=== PATIENT | female | born 1985 | race Caucasian/White ===

== ENCOUNTER 2022-09-04 18:35 | Emergency (ER) | payer OTHER, SELFPAY ==
[2022-09-04 18:42] VITALS: BP 119/81; PULSE 65; RESP 20; TEMP 36.8; O2SAT 99
--- NOTE | 2022-09-04 19:07 | ED.FEMALEGU ---
HPI - Female Genitourinary General Chief complaint: Urogenital-Female Stated complaint: Urinary Problem History of Present Illness HPI Narrative: PATIENT PRESENTS WITH LOW BACK PAIN URINARY FREQUENCY AND BURNING FOR THE PAST WEEK. NO FLANK PAIN NO GROSS HEMATURIA NO ABDOMINAL PAIN NO PELVIC PAIN NO CONCERN FOR STDS. Related Data Home Medications Medication Instructions Recorded Confirmed albuterol sulfate 90 mcg/actuation 1 puff inhalation Q4H PRN 06/23/21 09/04/22 aerosol inhaler Shortness Of Breath escitalopram oxalate 10 mg tablet 10 mg PO DAILY 09/04/22 09/04/22 (Lexapro) Allergies Allergy/AdvReac Type Severity Reaction Status Date / Time Benzodiazepines AdvReac Severe addiction Verified 09/04/22 18:56 Review of Systems Review of Systems: CONSTITUTIONAL: DENIES FEVER, CHILLS, OR SWEATS. EYES: DENIES VISUAL CHANGES, REDNESS, OR DISCHARGE. ENT: DENIES RHINORRHEA, CONGESTION, SORE THROAT, OR OTALGIA. CARDIOVASCULAR: DENIES CHEST PAIN, PALPITATIONS, OR EDEMA. RESPIRATORY: DENIES COUGH OR DYSPNEA. GASTROINTESTINAL: DENIES ABDOMINAL PAIN, NAUSEA, VOMITING, OR DIARRHEA. GENITOURINARY: DENIES DYSURIA OR HEMATURIA. SKIN: DENIES RASH OR ITCHING. MUSCULOSKELETAL: DENIES BACK PAIN, JOINT PAIN, OR MYALGIA. NEUROLOGIC: DENIES HEADACHE, NUMBNESS, OR WEAKNESS. PSYCHIATRIC: DENIES ANXIETY OR DEPRESSION. [facility] Past Medical History Medical History ADHD Anxiety Asthma Depression Dysphoric mood rejection sensitive dysphoria Heart murmur PTSD (post-traumatic stress disorder) Vaginal delivery x3 Surgical History Surgical History History of bilateral tubal ligation 02/2015? History of endometrial ablation 08/2015? History of removal of cyst on labia Family History Family History Father Alcoholism Mother Anxiety Depression Grandparent Alcoholism Diabetes mellitus Hypertension Anxiety Depression Heart problem Other Breast cancer runs on mothers side Ovarian cancer runs on mother's side Social History Social History Smoking status: Current every day smoker Tobacco type: cigarettes and e-cigarettes/vaping Alcohol intake: current Alcohol use details: about twice per year Substance use: former Substance use type: marijuana and prescription drug Other substance usage details: rell Comments AT TIME OF SIGNATURE, AGREE WITH NURSING PAST MEDICAL, SURGICAL, SOCIAL AND FAMILY HISTORY. THERE IS NO RELEVANT FAMILY HISTORY PERTINENT TO THE PRESENTING COMPLAINT Exam Narrative: GENERAL: WELL-APPEARING, WELL-NOURISHED, AND IN NO ACUTE DISTRESS. HEAD: NORMOCEPHALIC, ATRAUMATIC. EYES: PERRLA AND EOMI. ENT: NARES CLEAR, NO RHINORRHEA OR EPISTAXIS. MUCOUS MEMBRANES MOIST. NECK: SUPPLE. CHEST: CLEAR TO AUSCULTATION. NO RESPIRATORY DISTRESS. HEART: REGULAR RATE AND RHYTHM. NO MURMUR HEARD. NORMAL PERIPHERAL PULSES. ABDOMEN: SOFT, NONTENDER, NONDISTENDED, NORMAL ACTIVE BOWEL SOUNDS. EXTREMITIES: NORMAL RANGE OF MOTION. NO EDEMA. SKIN: WARM, DRY, NO RASH. NEURO: NO FOCAL DEFICITS. ALERT AND ORIENTED X3. TANIKA COMA [employer]ALE EYE OPENING: SPONTANEOUS 4 TANIKA COMA SCALE MOTOR: OBEYS COMMANDS 6 TANIKA COMA [employer]ALE VERBAL: ORIENTED 5 TANIKA COMA SCALE TOTAL 15 Course Course Level of Care: Express Care Visit Vital Signs Vital signs: Vital Signs Temperature 36.8 C 09/04/22 18:42 Pulse Rate 65 09/04/22 18:42 Respiratory Rate 20 09/04/22 18:42 Blood Pressure 119/81 09/04/22 18:42 Pulse Oximetry 99 09/04/22 18:42 Oxygen Delivery Room Air 09/04/22 18:42 Temperature 36.8 C 09/04/22 18:42 Pulse Rate 65 09/04/22 18:42 Respiratory Rate 20 09/04/22 18:42 Blood Pressure 119/81 09/04/22 18:42 Pulse
== END 2022-09-04 19:15 | disposition home or self-care (01) ==
PROVIDERS: Emergency Provider Nurse Practitioner Family
DX: N39.0 Urinary tract infection, site not specified (principal); F17.290 Nicotine dependence, other tobacco product, uncomplicated; F17.210 Nicotine dependence, cigarettes, uncomplicated; R01.1 Cardiac murmur, unspecified; J45.909 Unspecified asthma, uncomplicated; F41.9 Anxiety disorder, unspecified; F32.A Depression, unspecified
CPT/HCPCS: 81003; 87086; 87088; 99213; G0463

== ENCOUNTER 2022-09-29 09:46 | Emergency (ER) | payer OTHER, SELFPAY ==
[2022-09-29 09:52] VITALS: BP 124/83; PULSE 99; RESP 16; TEMP 38.1; O2SAT 98
--- NOTE | 2022-09-29 10:40 | ED.URI ---
HPI - URI/Sore Throat General Chief Complaint: Upper Respiratory Infection Stated Complaint: Shortness of Breath Time Seen by Provider: 09/29/22 10:40 Source: patient and RN notes reviewed Mode of arrival: ambulatory Limitations: no limitations History of Present Illness HPI Narrative: 37-year-old female with a history of asthma presented for complaint of shortness of breath and cough over the last 2 days. She endorses headache, body aches, sinus pressure/congestion, cough, fever/chills. she has a nebulizer but does not have the medication for it. She has been using her albuterol inhaler for symptoms. She states coughing has caused vomiting at times. Endorses cough is productive of cloudy mucus. She endorses her is sick as well. smokes Cigarettes occasionally. Establishing with a new PCP in November. MD elicited complaint: cough Related Data Home Medications Medication Instructions Recorded Confirmed albuterol sulfate 90 mcg/actuation 1 puff inhalation Q4H PRN 06/23/21 09/29/22 aerosol inhaler Shortness Of Breath escitalopram oxalate 10 mg tablet 10 mg PO DAILY 09/04/22 09/29/22 (Lexapro) Allergies Allergy/AdvReac Type Severity Reaction Status Date / Time Benzodiazepines AdvReac Severe addiction Verified 09/29/22 11:17 Review of Systems Review of Systems: CONSTITUTIONAL: Endorses malaise, chills, sweats, fever EYES: Denies visual changes, redness, or discharge ENT: Reports rhinorrhea, congestion, sinus pain CARDIOVASCULAR: Denies chest pain, palpitations, edema RESPIRATORY: Per HPI GASTROINTESTINAL: Denies abdominal pain, nausea, vomiting, diarrhea SKIN: Denies rash or itching MUSCULOSKELETAL: Endorses myalgia PMFSH Past Medical History Medical History ADHD Anxiety Asthma Depression Dysphoric mood rejection sensitive dysphoria Heart murmur PTSD (post-traumatic stress disorder) Vaginal delivery x3 Surgical History Surgical History History of bilateral tubal ligation 02/2015? History of endometrial ablation 08/2015? History of removal of cyst on labia Family History Family History Father Alcoholism Mother Anxiety Depression Grandparent Alcoholism Diabetes mellitus Hypertension Anxiety Depression Heart problem Other Breast cancer runs on mothers side Ovarian cancer runs on mother's side Social History Social History Smoking status: Current every day smoker Tobacco type: cigarettes and e-cigarettes/vaping Alcohol intake: current Alcohol use details: about twice per year Substance use: former Substance use type: marijuana and prescription drug Other substance usage details: xanax Exam Narrative: GENERAL: Ill-appearing, nontoxic no acute distress. HEAD: Normocephalic EYES: PERRLA, conjunctivae clear ENT: Mucous membranes moist. TMs pearly ortiz with dull light reflex bilaterally; no tragal tenderness. Oropharynx erythematous without lesions or exudate, NECK: Supple. No lymphadenopathy CHEST: Wheezing throughout all lentz No respiratory distress, speaks in full sentences. HEART: Regular rate and rhythm. No murmur heard. SKIN: Warm, dry, no rash. NEURO: Alert and oriented x3. PSYCH: Normal mood and affect Course Course Emergency Course: Patient is aware of diagnosis, understands and agrees to treatment plan. Anticipatory guidance given. Patient agrees to follow-up as directed and is aware of reasons to seek care at the emergency department. Portions of this record may have been created with voice recognition software Level of Care: Express Care Visit Vital Signs Vital signs: Vital Signs Temperature 100.5 F H 09/29/22 09:52 Pulse Rate 99 09/29/22 09:52 Respiratory Rate 16 09/16
[2022-09-29] MEDS: ALBUTEROL SULFATE NEB 2.5 MG/3 ML INH INHALATION (10:56)
[2022-09-29] MEDS: IPRATROPIUM BR 0.02% INH SOLN 0.5 MG/2.5 ML VIAL INHALATION (10:57)
[2022-09-29] MEDS: methylPREDNISolone SOD SUCC 125 MG VIAL IM (11:47)
[2022-09-29 11:58] VITALS: PULSE 98; RESP 18; O2SAT 98
== END 2022-09-29 11:58 | disposition home or self-care (01) ==
PROVIDERS: Emergency Provider Nurse Practitioner Family
DX: J40 Bronchitis, not specified as acute or chronic (principal); F17.290 Nicotine dependence, other tobacco product, uncomplicated; F17.210 Nicotine dependence, cigarettes, uncomplicated; F41.9 Anxiety disorder, unspecified; F32.A Depression, unspecified; R01.1 Cardiac murmur, unspecified; J45.909 Unspecified asthma, uncomplicated
CPT/HCPCS: 87426; 94640; 96372; 99213; C9803; G0463; J2930

== ENCOUNTER 2022-10-05 17:48 | Emergency (ER) | payer OTHER, SELFPAY ==
[2022-10-05 17:56] VITALS: BP 108/70; PULSE 68; RESP 16; TEMP 36.5; O2SAT 95
--- NOTE | 2022-10-05 18:05 | ED.SOB ---
HPI - SOB/Dyspnea General Chief Complaint: Shortness of Breath/Dyspnea Stated Complaint: Shortness of Breath Time Seen by Provider: 10/05/22 18:31 Source: patient and RN notes reviewed Mode of arrival: ambulatory Limitations: no limitations History of Present Illness HPI Narrative: 37-year-old female presents with concern for ongoing cough, shortness of breath, chest congestion, sinus pressure nasal congestion. Reports symptoms have been going on for 9 days. Reports she was treated with steroids without relief of her symptoms. She reports she last used her nebulizer 2 days ago. She reports it makes her feel jittery. MD elicited complaint: shortness of breath and cough Related Data Home Medications Medication Instructions Recorded Confirmed albuterol sulfate 90 mcg/actuation 1 puff inhalation Q4H PRN 06/23/21 09/29/22 aerosol inhaler Shortness Of Breath escitalopram oxalate 10 mg tablet 10 mg PO DAILY 09/04/22 09/29/22 (Lexapro) Allergies Allergy/AdvReac Type Severity Reaction Status Date / Time Benzodiazepines AdvReac Severe addiction Verified 09/29/22 11:17 Review of Systems Review of Systems: CONSTITUTIONAL: Reports malaise EYES: Denies visual changes, redness, or discharge. ENT: Reports rhinorrhea, congestion, sinus pain. Denies otalgia and sore throat. CARDIOVASCULAR: Denies chest pain, palpitations, or edema. RESPIRATORY: Reports cough, wheezing, dyspnea. GASTROINTESTINAL: Denies abdominal pain, nausea, vomiting, diarrhea SKIN: Denies rash or itching. MUSCULOSKELETAL: Denies myalgia. NEUROLOGIC: Denies headache. All systems reviewed & are unremarkable except as noted in HPI and below PMFSH Past Medical History Medical History ADHD Anxiety Asthma Depression Dysphoric mood rejection sensitive dysphoria Heart murmur PTSD (post-traumatic stress disorder) Vaginal delivery x3 Surgical History Surgical History History of bilateral tubal ligation 02/2015? History of endometrial ablation 08/2015? History of removal of cyst on labia Family History Family History Father Alcoholism Mother Anxiety Depression Grandparent Alcoholism Diabetes mellitus Hypertension Anxiety Depression Heart problem Other Breast cancer runs on mothers side Ovarian cancer runs on mother's side Social History Social History Smoking status: Current every day smoker Tobacco type: cigarettes and e-cigarettes/vaping Alcohol intake: current Alcohol use details: about twice per year Substance use: former Substance use type: marijuana and prescription drug Other substance usage details: xanax Comments At time of signature, agree with nursing past medical, surgical, social and family history. There is no relevant family history pertinent to the presenting complaint Exam Narrative: GENERAL: Nontoxic-appearing and in no acute distress. HEAD: Normocephalic EYES: PERRLA, conjunctivae clear ENT: Nares clear, turbinates edematous and erythematous. Mucous membranes moist. TM pearly ortiz with dull light reflex bilaterally; no tragal tenderness. Oropharynx not erythematous without lesions. Tonsils not enlarged and without exudate, no drooling, no hoarseness, no trismus, uvula midline. NECK: Supple. No lymphadenopathy CHEST: Audible wheeze without auscultation, Expiratory and expiratory wheeze, breath sounds equal. No rhonchi, rales, or stridor. No respiratory distress, speaks in full sentences. HEART: Regular rate and rhythm. No murmur heard. SKIN: Warm, dry, no rash. NEURO: Alert and oriented x3. PSYCH: Normal mood and affect Course Course Emergency Course: Patient is aware of diagnosis, understands and agrees to treatment plan. Anticipatory guidance give
== END 2022-10-05 18:34 | disposition home or self-care (01) ==
PROVIDERS: Emergency Provider Nurse Practitioner
DX: J40 Bronchitis, not specified as acute or chronic (principal); F41.9 Anxiety disorder, unspecified; F32.9 Major depressive disorder, single episode, unspecified; F17.210 Nicotine dependence, cigarettes, uncomplicated
CPT/HCPCS: 99213; G0463